=== PATIENT | male | born 1970 | race Caucasian/White ===

== ENCOUNTER 2017-03-31 11:20 | Emergency (ER) | payer BC ==
[2017-03-31 13:09] VITALS: BP 160/79
--- NOTE | 2017-03-31 13:53 | UC ---
FLU HPI - HPI Summary HPI Summary: c/o flu like symptoms for 4-5 days with fever, cough and chest pain when coughing. UC rapid influenza B positive. Has had pneumonia twice in the past and wants to rule out that possibility - History of Current Complaint Chief Complaint: UCRespiratory Stated Complaint: COUGH, FEVER Time Seen by Provider: 03/31/17 13:18 - Allergy/Home Medications Allergies/Adverse Reactions: Allergies Allergy/AdvReac Type Severity Reaction Status Date / Time No Known Allergies Allergy Verified 07/06/15 17:58 Home Medications: Home Medications Terazosin CAP* [Hytrin CAP*] 5 mg PO BEDTIME 03/31/17 [History Confirmed ] PMH/Surg Hx/FS Hx/Imm Hx Previously Healthy: Yes Other History Of: Negative For: Anticoagulant Therapy - Surgical History Surgical History: Yes Surgery Procedure, Year, and Place: undecended testicle, APPENDECTOMY - Family History Known Family History: Positive: Hypertension, Other - NONCONTRIBUTORY - Social History Alcohol Use: Weekly Substance Use Type: None Smoking Status (MU): Former Smoker - Immunization History Most Recent Influenza Vaccination: season Review of Systems Constitutional: Fever ENT: Sinus Congestion Respiratory: Cough All Other Systems Reviewed And Are Negative: Yes Physical Exam Triage Information Reviewed: Yes Appearance: Ill-Appearing Vital Signs: Initial Vital Signs Temp 98.5 F 03/31/17 13:05 Pulse 108 03/31/17 13:05 Resp 18 03/31/17 13:05 BP 160/79 03/31/17 13:05 Pulse Ox 98 03/31/17 13:05 Vital Signs Reviewed: Yes Eye Exam: Normal ENT Exam: Normal Dental Exam: Normal Neck exam: Normal Respiratory Exam: Normal Cardiovascular Exam: Normal Flu Course/Dx - Course Course Of Treatment: chest xray was negative, rest, tylenol when needed, fluids. - Differential Dx/Diagnosis Provider Diagnoses: INFLUENZA B Discharge - Discharge Plan Condition: Stable Disposition: HOME Patient Education Materials: Influenza (ED) Referrals: Joseph Hudson MD [Primary Care Provider] -
--- NOTE | 2017-03-31 14:16 | RAD ---
HISTORY: Cough, history of pneumonia COMPARISONS: October 19, 2015 VIEWS: 4: Frontal dual-energy and lateral views of the chest. FINDINGS: CARDIOMEDIASTINAL SILHOUETTE: The cardiomediastinal silhouette is normal. JESS: The jess are normal. PLEURA: The costophrenic angles are sharp. No pleural abnormalities are noted. LUNG PARENCHYMA: The lungs are clear. ABDOMEN: The upper abdomen is clear. There is no subphrenic gas. BONES AND SOFT TISSUES: Mild degenerative changes are noted along the spine. OTHER: None. IMPRESSION: NO ACTIVE CARDIOPULMONARY DISEASE.
== END 2017-03-31 15:15 | disposition home or self-care (01) ==
LOC: UCEAST 11:20
DX: J11.1 Influenza due to unidentified influenza virus with other respiratory manifestations (principal); Z87.891 Personal history of nicotine dependence
CPT/HCPCS: 71046; 87502; 99211; G0463